=== PATIENT | male | born 1950 | race Caucasian/White ===

== ENCOUNTER → 2017-09-03 | Outpatient (CLI) | payer MEDICARE, OTHER | END | disposition home or self-care (01) | LOC: C.LABPBG 14:30 | PROVIDERS: ATTEND Urology | DX: N40.1 Benign prostatic hyperplasia with lower urinary tract symptoms (principal) ==

== ENCOUNTER → 2017-12-18 | Outpatient (CLI) | payer MEDICARE ==
[2017-12-18 14:53] LABS: ALBUMIN 3.7 gm/dl (3.4-5.0); ALKALINE PHOSPHATASE 59 U/L (45-117); ALT/SGPT 31 U/L (12-78); AST/SGOT 19 U/L (15-37); BLOOD UREA NITROGEN 17 mg/dl (7-18); CARBON DIOXIDE 26 mmol/L (21-32); CREATININE 1.19 mg/dl (0.60-1.40); GLUCOSE 100 mg/dl (70-99); POTASSIUM 4.1 mmol/L (3.5-5.1); SODIUM 140 mmol/L (136-145); TOTAL PROTEIN 7.2 gm/dl (6.4-8.2)
== END | disposition home or self-care (01) ==
LOC: C.LABPBG 10:43
PROVIDERS: ATTEND Family Medicine
DX: N40.1 Benign prostatic hyperplasia with lower urinary tract symptoms (principal); M79.1 Myalgia; R25.2 Cramp and spasm

== ENCOUNTER 2025-05-28 10:43 | Inpatient (IN) ==
--- NOTE | 2025-05-28 11:00 | Emergency Department Note ---
Impression & Plan Acute deep vein thrombosis (DVT), Elevated troponin, LOREN (acute kidney injury), Dyspnea ED Provider Note NAME: HOLLY TYLER AGE: 75 SEX: M : 1950 ARRIVES VIA: Walk-In INFORMANT: Patient, ED PROVIDER(S): Osman Beard MD CHIEF COMPLAINT: Left leg pain MEDICAL DECISION MAKING: Patient presents due to concern primarily for the left calf pain. DVT ultrasound ordered. The patient however has associated shortness of breath although not currently present. Given this dimer chest x-ray EKG and labs also obtained. Patient's blood work shows a normal white count hemoglobin of 13.1 with a normal platelet count. Kidney function with worsening creatinine. Baseline typically 1.1-1.2 but currently 2.18. Patient was ordered 1 L of IV fluids. Initial troponin of 33.6. No priors for comparison. EKG without signs of obvious ischemia. DVT ultrasound concerning for popliteal and tibial DVT. D-dimer is elevated at 22,000. Will defer any CT imaging but will initiate empiric treatment for left lower extremity DVT. Patient was ordered heparin bolus and drip. I did speak with the on-call hospital service Dr. Coyne and the patient was admitted to the medicine service. Critical Care: I have personally spent 36 minutes of critical care time in direct management of this patient. This includes bedside care, interpretation of diagnostic studies, and testing, discussion with consultants, patient, and family members, and other require inpatient management activities. This 36 minutes is in excess of all separately billable procedures. Discussion w/ other healthcare providers: Dr. Coyne inpatient medicine service Prior /Outside records reviewed: I did review part of an operative report from Dr. Eubanks from May 26 which noted the patient was under general anesthesia for shockwave lithotripsy. Differential diagnosis: Reactive airway disease, pneumonia, pneumothorax, COPD, CHF, ACS, pulmonary embolism, musculoskeletal, GERD as well as other pathologies were considered. Diagnostics, as interpreted by me: ECG: Normal sinus rhythm, rate of 72, normal intervals, normal axis no obvious STEMI. Cardiac monitoring: An order was placed for continuous cardiac monitoring. The monitor shows a rate of 75 with sinus rhythm. Patient was placed on pulse oximetry Medical decision rules: None Imaging studies: I informally interpreted the patient's chest x-ray does not show obvious pneumonia with formal report to follow. HPI: Patient presents for left leg pain. The patient reports that this began around midnight. The patient states that he did have some associated shortness of breath may have been a panic but lasted maybe 10 minutes. No cough or fever. Patient denies any chest pains. No falls or trauma. Patient did have a procedure completed with Dr. Eubanks on Thursday. Review of the notes showed patient did undergo lithotripsy and was under general anesthesia. Patient denies any prior history of DVT or PE. Patient denies blood thinner use. PAST MEDICAL HISTORY: See Below PAST SURGICAL HISTORY: See Below SOCIAL HISTORY: See Below HOME MEDICATIONS: See Below ALLERGIES: See Below VITALS: See Below PHYSICAL EXAMINATION: GENERAL: NAD, non-toxic. Wearing glasses and a hat. EYE EXAM: Normal conjunctiva. PERRL, no anisocoria and EOM's grossly intact w/o pain. OROPHARYNX: Moist mucus membranes, grossly normal dentition. NECK: Trachea midline, no stridor. LUNGS: Clear to auscultation. Normal chest wall mechanics. HEART: NSR, no MRG. ABDOMEN: Abdomen soft, non-tender, no masses, no rebound or guarding. BACK: No CVA TTP. SKIN: No rashes and no bruising. UPPER EXTREMITIES: Upper extremities are grossly normal. LOWER EXTREMITIES: No obvious asymmetry, pain to the left posterior calf. No obvious palpable cord. NEURO EXAM: Awake and alert, follows commands, no obvious facial asymmetry, normal speech, moves all 4 extremities. Past Med/Surg History Problem List (Updated 05/28/25 @ 14:27 by Osman Beard MD) Dyspnea (Acute) LOREN (acute kidney injury) (Acute) Elevated troponin (Acute) Acute deep vein thrombosis (DVT) (Acute) Asymptomatic microscopic hematuria (Acute) Back pain (Acute) Diverticulitis (Acute) Chronic constipation Carpal tunnel syndrome of left wrist Colon polyp Lyme disease Panic disorder Anxiety Hemorrhoids Seborrheic keratosis Multiple benign nevi High blood pressure Dermatofibroma Angioma Benign localized prostatic hyperplasia with lower urinary tract symptoms (LUTS) BPH (benign prostatic hyperplasia) Medical History Benign localized prostatic hyperplasia with lower urinary tract symptoms (LUTS) HTN (hypertension) Hx of Lyme disease History of anxiety Chronic constipation Diverticulitis dx 05/15/25, reason for current Flagyl abx; "has had this many times" Hypercholesteremia Kidney stones Surgical History H/O colonoscopy Family History Father Prostate cancer Hypertension Cardiac disorder Mother Cancer Social History Smoking Status: Never smoker Second Hand Exposure: Yes (hx as child); Do You Dip or Chew Tobacco: No; Hx Alcohol Use: Yes Hx Substance Use: No Preferred Language: Belgian Communication Ability: Effective Pharmacy Technologist Required: No Beliefs That Will Affect Care: None marital status: Current Living Situation: Alone current occupational status: retired Feels Safe at Home: Yes Assistive Devices: Denture - Upper and Glasses Allergies Allergies Allergy/AdvReac Type Severity Reaction Status Date / Time lubiprostone [From Amitiza] AdvReac Insomnia Verified 05/26/25 06:25 Home Meds Home Medications Medication Instructions Recorded Confirmed alprazolam 2 mg tablet 1 - 2 mg PO QAM Anxiety 01/14/24 05/28/25 aspirin 81 mg tablet,delayed 0 mg PO QAM 01/14/24 05/28/25 release (Adult Low Dose Aspirin) cholecalciferol (vitamin D3) 10 10 mcg PO QAM 01/14/24 05/28/25 mcg (400 unit) capsule cinnamon bark 500 mg capsule 500 mg PO QAM 01/14/24 05/28/25 (Cinnamon) garlic 500 mg capsule 500 mg PO QAM 01/14/24 05/28/25 lisinopril 10 mg tablet 10 mg PO QAM 01/14/24 05/28/25 omega-3 fatty acids 1,000 mg 1,000 mg PO DAILY 01/14/24 05/28/25 capsule saw palmetto 500 mg capsule 500 mg PO BID 01/14/24 05/28/25 terazosin 5 mg capsule 5 mg PO BID 01/14/24 05/28/25 zinc acetate 50 mg (zinc) capsule 50 mg PO QAM 01/14/24 05/28/25 (Galzin) sennosides 8.6 mg tablet (Senna 8.6 mg PO DAILY 01/22/24 05/28/25 Lax) linaclotide 290 mcg capsule 290 mcg PO QAM 05/10/25 05/28/25 (Linzess) finasteride 5 mg tablet 5 mg PO QAM 05/18/25 05/28/25 tamsulosin 0.4 mg capsule 0.4 mg PO DAILY PRN Kidney Stones 05/28/25 05/28/25 Previous Rx's Medication Instructions Recorded ciprofloxacin HCl 500 mg tablet 500 mg PO Q12H #20 tabs 05/15/25 (Cipro) tramadol 50 mg tablet 50 mg PO Q6H PRN pain #20 tabs 05/26/25 Results & Data (ED) Vital Signs Vital Signs - 24 hr 05/28/25 10:45 05/28/25 13:00 05/28/25 13:09 Temperature 36.7 C Temperature Source Temporal Artery Scan Pulse Rate 99 H 68 82 Respiratory Rate 18 17 Respiratory Effort / Characteristics Non-Labored Spontaneous Respiratory Depth Normal Blood Pressure 133/80 146/88 H Blood Pressure Mean 97 118 Pulse Oximetry 98 96 Oxygen Delivery Method Room Air Sepsis Recent Fever Within 48 Hours No Sepsis New/Unexplained Change in Mental Status No Sepsis Action Taken by Nursing No Action Required 05/28/25 13:16 Temperature Temperature Source Pulse Rate Respiratory Rate Respiratory Effort / Characteristics Respiratory Depth Blood Pressure Blood Pressure Mean Pulse Oximetry 96 Oxygen Delivery Method Room Air Sepsis Recent Fever Within 48 Hours Sepsis New/Unexplained Change in Mental Status Sepsis Action Taken by [facility] Medications Current Medication List: was personally reviewed by me Laboratory Data Attestation: I reviewed the patient's lab results. 05/28/25 11:15 05/28/25 11:15 Lab Results 05/28/25 05/28/25 Range/Units 11:15 13:14 WBC 6.90 (4.8-10.8) K/ul RBC 4.31 L (4.70-6.10) M/uL Hgb 13.1 L (14.0-18.0) g/dl Hct 39.5 L (42.0-52.0) % MCV 91.6 (80.0-100.0) fL MCH 30.4 (25.0-34.0) pg MCHC 33.2 (32.0-36.0) g/dL RDW Std Deviation 42.5 (36.4-46.3) fL RDW Coeff of Vinod 12.8 (11.5-14.5) % Plt Count 221 (130-400) K/uL MPV 9.2 L (9.4-12.4) fL Immature Gran % (Auto) 0.4 % Neut % (Auto) 75.6 % Lymph % (Auto) 14.8 % [place] % (Auto) 8.0 % Eos % (Auto) 0.9 % Baso % (Auto) 0.3 % Neut # (Auto) 5.22 (1.40-6.50) K/uL Lymph # (Auto) 1.02 L (1.20-3.40) K/uL [place] # (Auto) 0.55 (0.11-0.59) K/uL Eos # (Auto) 0.06 (0.00-0.50) K/uL Baso # (Auto) 0.02 (0.00-0.20) K/uL Immature Gran # (Auto) 0.03 (0.01-0.20) K/uL PT 10.7 (9.0-12.0) Seconds INR 1.0 (0.9-1.1) APTT 25 (21-31) Seconds PTT Ratio 0.9 D-Dimer 69915 H* (0-500) ug/L FEU Sodium 141 (136-145) mmol/L Potassium 4.7 (3.5-5.1) mmol/L Chloride 108 H (98-107) mmol/L Carbon Dioxide 23 (21-32) mmol/L Anion Gap 10 (3-11) BUN 22 (6-23) mg/dl Creatinine 2.18 H (0.6-1.4) mg/dl Est Cr Clr Drug Dosing 33.6 ml/min eGFR 30.62 BUN/Creatinine Ratio 10.1 (10-20) Glucose 103 H (70-99(Fasting)) mg/dl Calcium 9.3 (8.6-10.3) mg/dl Total Bilirubin 1.0 (0.2-1.0) mg/dl AST 17 (13-39) U/L ALT 20 (7-52) U/L Alkaline Phosphatase 51 (34-104) U/L Troponin I High Sens 33.6 H 32.6 H (0-20) pg/ml Total Protein 6.9 (6.0-8.3) gm/dl Albumin 3.7 (3.4-5.0) gm/dl Globulin 3.2 (2.5-4.0) gm/dl Albumin/Globulin Ratio 1.2 (0.9-2) Administered Medications Heparin Sodium/Dextrose (Heparin 37615 Unit/500 Ml D5w) 25,000 units in 500 mls @ 30 mls/hr IV .[id number] [facility]; Protocol Stop: 06/27/25 12:29 Last Admin: 05/28/25 12:33 Dose: 1,500 units/hr, 30 mls/hr Documented By: MARÍA Co-signed By: MINDY Discontinued Medications Heparin Sodium (Porcine) (Heparin Sod (Porcine) 1000 Unit/Ml) 1 units IV NOW ONE Stop: 05/28/25 12:29 Last Admin: 05/28/25 12:32 Dose: 7,000 units Documented By: MARÍA Co-signed By: MINDY Heparin Sodium/Dextrose (Heparin Iv Adult Wt-Based Standard W/ Initial Bolus Protocol) 1 each IV NOW STA; Protocol Stop: 05/28/25 12:14 Last Admin: 05/28/25 12:33 Dose: 1 each Documented By: MARÍA Imaging Data Radiologist's Impression: Venous Doppler Study 05/28/25 11:01 LEFT LOWER EXTREMITY VENOUS DOPPLER CLINICAL HISTORY: Left lower extremity pain, recent procedure. COMPARISON STUDY: No previous studies for comparison. TECHNIQUE: Sonography of the deep venous system of the left lower extremity was performed. Compression and augmentation were evaluated. FINDINGS: The left common femoral and superficial femoral veins are patent. There is deep venous thrombus within one of two left popliteal and posterior tibial veins. IMPRESSION: Positive study with deep venous thrombus within left popliteal and posterior tibial veins. ACT 112: Negative or not required by law. Electronically signed by: Jevon Vang M.D. 05/28/2025 12:16 PM Chest X-Ray 05/28/25 11:09 XR chest 1V portable CLINICAL HISTORY: Dyspnea COMPARISON STUDY: Chest radiograph May 17, 2025. FINDINGS: Lung volumes are normal. Lungs are clear. There is no pneumothorax or pleural effusion. Cardiac size is normal. Mediastinal contours are normal. There is no evidence for pulmonary edema. IMPRESSION: No acute cardiopulmonary findings. ACT 112: Negative or not required by law. Electronically signed by: Jevon Vang M.D. 05/28/2025 11:35 AM Discharge Plan Visit Data Chief Complaint: Leg Injury/Pain Stated Complaint: L LEG FEELS HEAVY AND PAINFUL, CONCERN OF CLOT ED Provider: Osman Beard Discharge Problem: Acute deep vein thrombosis (DVT), Elevated troponin, LOREN (acute kidney injury), Dyspnea Patient Disposition: Admitted As Inpatient Condition: Good Prescriptions Prescriptions: No Action charlene palmetto 500 mg capsule 500 mg PO BID Rx Instructions: give with food (meal/snack) cinnamon bark [Cinnamon] 500 mg capsule 500 mg PO QAM aspirin [Adult Low Dose Aspirin] 81 mg tablet,delayed release (DR/EC) 0 mg PO QAM Patient Comments: Currently on hold as of 05/24/25 as pt had surgery on 05/26/25. Told to hold on med until follow-up appointment. 05/28/25 alprazolam 2 mg tablet 1 - 2 mg PO QAM Patient Comments: Originally written for 2mg by mouth daily as needed. Pt states taking 1mg-2mg by mouth once every morning. 05/28/25 omega-3 fatty acids 1,000 mg capsule 1,000 mg PO DAILY garlic 500 mg capsule 500 mg PO QAM cholecalciferol (vitamin D3) 10 mcg (400 unit) capsule 10 mcg PO QAM terazosin 5 mg capsule 5 mg PO BID lisinopril 10 mg tablet 10 mg PO QAM Galzin 50 mg (zinc) capsule 50 mg PO QAM Linzess 290 mcg capsule 290 mcg PO QAM sennosides [Senna Lax] 8.6 mg tablet 8.6 mg PO DAILY ciprofloxacin HCl [Cipro] 500 mg tablet 500 mg PO Q12H Qty: 20 0RF finasteride 5 mg tablet 5 mg PO QAM tramadol 50 mg tablet 50 mg PO Q6H PRN (Reason: pain) Qty: 20 0RF tamsulosin 0.4 mg capsule 0.4 mg PO DAILY PRN (Reason: Kidney Stones) Referrals Referrals: Nayla Dale MD [Primary Care Provider] - Discharge Problem: Acute deep vein thrombosis (DVT) Qualifiers: DVT location: lower extremity Affected thrombotic vein of extremity: popliteal Laterality: left Qualified Code(s): I82.432 - Acute embolism and thrombosis of left popliteal vein Dyspnea Qualifiers: Dyspnea type: unspecified Qualified Code(s): R06.00 - Dyspnea, unspecified
[2025-05-28 11:37] LABS: Hematocrit (blood only) 39.5 % (42.0-52.0); Hemoglobin 13.1 g/dl (14.0-18.0); Immature Granulocytes # (auto) 0.03 K/uL (0.01-0.20); Immature Granulocytes % (auto) 0.4 %; Mean Corpuscular Hemoglobin 30.4 pg (25.0-34.0); Mean Corpuscular Volume 91.6 fL (80.0-100.0); Platelet Count 221 K/uL (130-400); RDW Standard Deviation 42.5 fL (36.4-46.3); Red Blood Count 4.31 M/uL (4.70-6.10); White Blood Count 6.90 K/ul (4.8-10.8)
--- NOTE | 2025-05-28 11:37 | XRay Report ---
XR chest 1V portable CLINICAL HISTORY: Dyspnea COMPARISON STUDY: Chest radiograph May 17, 2025. FINDINGS: Lung volumes are normal. Lungs are clear. There is no pneumothorax or pleural effusion. Car diac size is normal. Mediastinal contours are normal. There is no evidence for pulmonary edema. IMPRESSION: No acute cardiopulmonary findings. ACT 112: Negative or not required by law. Electronically signed by: Jevon Vang M.D. 05/28/2025 11:35 AM
[2025-05-28 11:54] LABS: Alanine Aminotransferase 20.0 U/L (7-52); Albumin Globulin Ratio 1.2 (0.9-2); Alkaline Phosphatase 51.0 U/L (34-104); Anion Gap 10.0 (3-11); Bilirubin,Total 1.0 mg/dl (0.2-1.0); Blood Urea Nitrogen 22.0 mg/dl (6-23); Calcium 9.3 mg/dl (8.6-10.3); Carbon Dioxide 23.0 mmol/L (21-32); Chloride 108.0 mmol/L (98-107); Creatinine Clr Calc Pharmacy 33.6 ml/min; Globulin 3.2 gm/dl (2.5-4.0); Glucose 103.0 mg/dl (70-99(Fasting)); Potassium 4.7 mmol/L (3.5-5.1); Sodium 141.0 mmol/L (136-145); Total Protein 6.9 gm/dl (6.0-8.3)
--- NOTE | 2025-05-28 12:17 | Ultrasound Report ---
LEFT LOWER EXTREMITY VENOUS DOPPLER CLINICAL HISTORY: Left lower extremity pain, recent procedure. COMPARISON STUDY: No previous studies for comparison. TECHNIQUE: Sonography of the deep venous system of the left lower extremity was performed. Compressi on and augmentation were evaluated. FINDINGS: The left common femoral and superficial femoral veins are patent. There is deep venous thr ombus within one of two left popliteal and posterior tibial veins. IMPRESSION: Positive study with deep venous thrombus within left popliteal and posterior tibial veins . ACT 112: Negative or not required by law. Electronically signed by: Jevon Vang M.D. 05/28/2025 12:16 PM
[2025-05-28 12:32] LABS: INR 1.0 (0.9-1.1); Partial Thromboplastin Time 25 Seconds (21-31); Prothrombin Time 10.7 Seconds (9.0-12.0)
[2025-05-28] MEDS: HEPARIN SOD (PORCINE) 1000 UNIT/ML IV ONE (12:32)
[2025-05-28] MEDS: Heparin IV Adult Wt-Based Standard w/ INITIAL Bolus Protocol IV STA (12:33)
[2025-05-28] MEDS: HEPARIN 25000 UNIT/500 ML D5W 25,000 UNITS/500 ML BAG IV SCH (12:33)
--- NOTE | 2025-05-28 12:59 | History & Physical Report ---
Date of Service May 28, 2025 Assessment & Plan (1) LOREN (acute kidney injury): (2) Acute deep vein thrombosis (DVT): (3) Elevated troponin: (4) Panic disorder: (5) High blood pressure: (6) Benign localized prostatic hyperplasia with lower urinary tract symptoms (LUTS): Plan 75 y/o with BPH and nephrolithiasis who underwent recent urologic procedure with anesthesia (ESWL 05/[address] Eubanks) who is admitted with left calf DVT, LOREN # LOREN - denies NSAIDS and PVR only 120-160 in ED. No obvious dehydration but has had few weeks malaise from diverticulitis, nephrolithiasis. Potentially related to obstruction / stone passage or prerenal injury. -1L NS given in ED. -hydrate with IV LR -if not promptly resolving will ultrasound kidneys, bladder to r/o obstructive process since he just had urologic procedure. -monitor PVR and UOP -continue finasteride terazosin and tamsulosin for BPH. chronically not on tamsulosin - thats for the recent stone pain. -hold MARGARITA -AM BMP # L calf DVT - provoked by recent immobility related to diverticulitis/nephrolithiasis and or urological procedure with general anesthesia a few days ago. No personal Hx VTE but daughter had a DVT. -stop heparin drip and change to apixaban 10 mg bid at 7pm -discussed risks:benefits of anticoagulation # Slight elevation of HS-trop with flat trend -unable to determine whether simply poor renal clearance or mild demand ischemia related to recent anesthesia or minor PE since he did have some dyspnea at night. No hypoxia or chest pain at this time. 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 No hx CAD or CVD/stroke so presume this is for primary prevention # Generalized anxiety and panic disorder -continue alprazolam as needed, seems to take most mornings History of Present Illness Chief Complaint: left calf pain Primary Care Provider: Nayla Dale MD 75 y/o with BPH and nephrolithiasis who underwent recent urologic procedure with anesthesia (ESWL 05/[address] Eubanks) who came to ED with L calf pain that started around midnight. He woke up with it. Zam[place] like a bad [place] Horse but persisted and didn't get better. No edema/swelling warmth or redness. He had a little shortness of breath around that time without chest pain, felt a bit like a panic attack. He never gets panic attacks at night however. This dyspnea lasted maybe 10 minutes and resolved. No dyspnea now and no chest pain. He has BPH and has had a few episodes of urinary retention requiring thorne or straight cath but not recently. He has slow stream and incomplete voiding. He had been having R back/flank pain that has improved/resolved following the ESWL. No hematuria or inability to void, no dysuria. Has been having poor appetite but drinking fluids well. No N/V/D. Has had a recent episode of diverticulitis - took 9 days of cipro through last week and had to stop early because of tendon pain. He says the diverticulitis sx have resolved. No fevers/chills. Not on antibiotics right now. In ED found to have elevated Ddimer and duplex showed L calf DVT Tn minimally elevated at 33, EKG reassuring He was also found to have LOREN Allergies Allergy/AdvReac Type Severity Reaction Status Date / Time lubiprostone [From Amitiza] AdvReac Insomnia Verified 05/26/25 06:25 Home Medications Medication Instructions Recorded Confirmed Type alprazolam 2 mg tablet 1 - 2 mg PO QAM Anxiety 01/14/24 05/28/25 History aspirin 81 mg tablet,delayed 0 mg PO QAM 01/14/24 05/28/25 History release (Adult Low Dose Aspirin) cholecalciferol (vitamin D3) 10 10 mcg PO QAM 01/14/24 05/28/25 History mcg (400 unit) capsule cinnamon bark 500 mg capsule 500 mg PO QAM 01/14/24 05/28/25 History (Cinnamon) garlic 500 mg capsule 500 mg PO QAM 01/14/24 05/28/25 History lisinopril 10 mg tablet 10 mg PO QAM 01/14/24 05/28/25 History omega-3 fatty acids 1,000 mg 1,000 mg PO DAILY 01/14/24 05/28/25 History capsule saw palmetto 500 mg capsule 500 mg PO BID 01/14/24 05/28/25 History terazosin 5 mg capsule 5 mg PO BID 01/14/24 05/28/25 History zinc acetate 50 mg (zinc) capsule 50 mg PO QAM 01/14/24 05/28/25 History (Galzin) sennosides 8.6 mg tablet (Senna 8.6 mg PO DAILY 01/22/24 05/28/25 History Lax) linaclotide 290 mcg capsule 290 mcg PO QAM 05/10/25 05/28/25 History (Linzess) ciprofloxacin HCl 500 mg tablet 500 mg PO Q12H #20 tabs 05/15/25 05/26/25 Rx (Cipro) finasteride 5 mg tablet 5 mg PO QAM 05/18/25 05/28/25 History tramadol 50 mg tablet 50 mg PO Q6H PRN pain #20 tabs 05/26/25 05/28/25 Rx tamsulosin 0.4 mg capsule 0.4 mg PO DAILY PRN Kidney Stones 05/28/25 05/28/25 History Past Med/Surg History Problem List (Updated 05/28/25 @ 14:27 by Osman Beard MD) Dyspnea (Acute) LOREN (acute kidney injury) (Acute) Elevated troponin (Acute) Acute deep vein thrombosis (DVT) (Acute) Asymptomatic microscopic hematuria (Acute) Back pain (Acute) Diverticulitis (Acute) Chronic constipation Carpal tunnel syndrome of left wrist Colon polyp Lyme disease Panic disorder Anxiety Hemorrhoids Seborrheic keratosis Multiple benign nevi High blood pressure Dermatofibroma Angioma Benign localized prostatic hyperplasia with lower urinary tract symptoms (LUTS) BPH (benign prostatic hyperplasia) Medical History Benign localized prostatic hyperplasia with lower urinary tract symptoms (LUTS) HTN (hypertension) Hx of Lyme disease History of anxiety Chronic constipation Diverticulitis dx 05/15/25, reason for current Flagyl abx; "has had this many times" Hypercholesteremia Kidney stones Surgical History H/O colonoscopy Family History Father Prostate cancer Hypertension Cardiac disorder Mother Cancer Social History Smoking Status: Never smoker Second Hand Exposure: Yes (hx as child); Do You Dip or Chew Tobacco: No; Hx Alcohol Use: Yes Hx Substance Use: No Preferred Language: Syriac Communication Ability: Effective Funeral Home Assistant Required: No Beliefs That Will Affect Care: None marital status: Current Living Situation: Alone current occupational status: retired Feels Safe at Home: Yes Assistive Devices: Denture - Upper and Glasses Review of Systems 2 Review of Systems: All systems reviewed & are unremarkable except as noted in HPI & below Physical Exam 2 Physical Exam: Last 24h vitals reviewed GEN: no acute distress, sitting on gurney in ED HEENT: pupils equal, sclerae anicteric, moist MM RESP: normal WOB, CTAB CV: reg no mrg ABD: soft/nt/nd +BT : no thorne SKIN: warm and dry, no generalized rashes EXT: some L calf tenderness but no palpable cord, no erythema or edema, appears equal size to R NEURO: AOx person, place, and situation. Face symmetric, speech normal, moves 4 ext spontaneously and equally Results & Data Results & Data Vital Signs (Past 12 Hours) Vital Signs Temp Pulse Resp BP Pulse Ox O2 Del Method 05/28/25 10:45 36.7 C 99 H 18 133/80 98 Room Air Laboratory Results 05/28/25 11:15 05/28/25 11:15 Ddimer elevated Tn 33 Diagnostic Findings Personally reviewed EKG tracing and it is normal LE duplex - DVT left popliteal veins and posterior tibial vein Code Status & VTE Plan VTE Prophylaxis Plan VTE Prophylaxis will be ordered: No Reason for no VTE drug order: Treatment not indicated PG Care Time/CCT Total # of Minutes Spent Total Time Spent with Patient: Total time spent is greater than 50% in coordination of care (as documented) at patient's floor/unit and/or counseling patient: Coding Level of Care Code 25386 INT INP/OBS CARE 3/75MIN Diagnoses LOREN (acute kidney injury) N17.9 Acute deep vein thrombosis (DVT) I82.432 Affected thrombotic vein of extremity: popliteal DVT location: lower extremity Laterality: left Elevated troponin R79.89 Panic disorder F41.0 High blood pressure I10 Benign localized prostatic hyperplasia with lower urinary tract symptoms (LUTS) N40.1 (2) Acute deep vein thrombosis (DVT) Affected thrombotic vein of extremity: popliteal DVT location: lower extremity Laterality: left Qualified Code(s): I82.432 - Acute embolism and thrombosis of left popliteal vein
[2025-05-28 13:16] VITALS: O2SAT 96
[2025-05-28] MEDS: SODIUM CHLORIDE 0.9% 500 ML IV ONE (14:59)
[2025-05-28] MEDS ORDERED: POLYETHYLENE (MIRALAX) 17 GM PACK PO PRN (16:32)
[2025-05-28] MEDS ORDERED: ONDANSETRON INJ 2 MG/ML 2 ML VIAL IV PRN (16:32)
[2025-05-28] MEDS ORDERED: MAGNESIUM HYDROXIDE SUSP 30 ML UDC PO PRN (16:32)
[2025-05-28] MEDS ORDERED: ALUMINUM/MAGNESIUM SUSP 30 ML UDC PO PRN (16:32)
[2025-05-28] MEDS ORDERED: MELATONIN 3 MG TAB PO PRN (16:32)
[2025-05-28] MEDS: APIXABAN 5 MG TABLET PO SCH (19:15)
[2025-05-29] MEDS: ACETAMINOPHEN 325 MG TAB PO PRN (06:29)
[2025-05-29 07:21] VITALS: RESP 18; TEMP 98.4
[2025-05-29 08:19] LABS: Anion Gap 10.0 (3-11); Blood Urea Nitrogen 21.0 mg/dl (6-23); Calcium 9.0 mg/dl (8.6-10.3); Carbon Dioxide 22.0 mmol/L (21-32); Chloride 108.0 mmol/L (98-107); Creatinine Clr Calc Pharmacy 39.0 ml/min; Glucose 101.0 mg/dl (70-99(Fasting)); Potassium 4.3 mmol/L (3.5-5.1); Sodium 140.0 mmol/L (136-145)
--- NOTE | 2025-05-29 09:24 | Ultrasound Report ---
RENAL ULTRASOUND CLINICAL HISTORY: LOREN, recent nephrolithiasis and ESWL COMPARISON STUDY: CT of the abdomen and pelvis May 15, 2025. TECHNIQUE: Sonography of the kidneys and the urinary bladder was performed. FINDINGS: The right kidney measures 12.2 cm in maximal dimension and the left measures 11.9 cm. No re nal calculi are identified by sonography. There is mild left hydronephrosis and mild dilatation of th e proximal right ureter. There is no left hydronephrosis. The prostate is enlarged. Ureteral jets wer e not visualized. IMPRESSION: 1. Mild right hydronephrosis. 2. No left hydronephrosis. 3. No renal calculi identified by sonography. ACT 112: Negative or not required by law. Electronically signed by: Jevon Vang M.D. 05/29/2025 9:22 AM
[2025-05-29 09:27] VITALS: BP 125/73; PULSE 80
[2025-05-29] MEDS: TERAZOSIN HCL 5 MG CAP PO SCH (09:28)
[2025-05-29] MEDS: LINACLOTIDE 145 MCG CAPSULE PO SCH (09:30)
[2025-05-29] MEDS: FINASTERIDE 5 MG TAB PO SCH (09:30)
[2025-05-29] MEDS: SENNA 8.6 MG TAB PO SCH (09:31)
--- NOTE | 2025-05-29 09:50 | Electrocardiogram Report ---
Test Reason : Blood Pressure : */* mmHG Vent. Rate : 72 BPM Atrial Rate : 72 BPM P-R Int : 174 ms QRS Dur : 86 ms QT Int : 360 ms P-R-T Axes : 52 14 41 degrees QTcB Int : 394 ms Normal sinus rhythm Normal ECG When compared with ECG of 17-May-2025 11:39, T wave inversion no longer evident in Inferior leads Confirmed by Wilton Abraham ([id number]) on 05/29/2025 9:49:35 AM Referred By: REFERRED SELF Confirmed By: Wilton Abraham
--- NOTE | 2025-05-29 17:53 | Discharge Summary ---
Discharge Summary Date of Service May 29, 2025 Principal Dx & Hospital Course #1 = Principal Diagnosis (1) LOREN (acute kidney injury): (2) Acute deep vein thrombosis (DVT): (3) Elevated troponin: (4) Panic disorder: (5) High blood pressure: (6) Benign localized prostatic hyperplasia with lower urinary tract symptoms (LUTS): Plan 75 y/o with BPH and nephrolithiasis who underwent recent urologic procedure with anesthesia ([facility] 05/[address] 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 No obvious dehydration but has had few weeks malaise from diverticulitis, nephrolithiasis. Potentially related to obstruction / stone passage or prerenal injury. -given IV fluids -Cr improved from 2-->1.88, maintaining normal UOP -ultrasound kidneys, bladder obtained - reassuring with only mild R hydro which is related to recent urologic procedure and ongoing passage of small stone fragments. No stones visualized. -continue finasteride terazosin and tamsulosin for BPH. chronically not on tamsulosin - thats for the recent stone pain. -hold lisinopril until primary care follow up - can be resumed if BMP normalizing to his baseline -counseled no NSAIDS because of anticoagulation, LOREN # L calf DVT - provoked by recent immobility related to diverticulitis/nephrolithiasis and or urological procedure with general anesthesia a few days ago. No personal Hx VTE but daughter had a DVT. -prescribed apixaban -discussed risks:benefits of anticoagulation # Slight elevation of HS-trop with flat trend # Possible PE related to LLE DVT, however, if present it is very minor -unable to determine whether simply poor renal clearance or mild demand ischemia related to recent anesthesia or minor PE since he did have some dyspnea at night. No hypoxia or chest pain at this time. EKG normal and no chest pain, no evidence of ACS -will not pursue CTA chest at this time since will not change management expert # HTN - hold lisinopril as above Stop aspirin while on eliquis. No hx CAD or CVD/stroke so presume this is for primary prevention # Generalized anxiety and panic disorder -continue alprazolam as needed, seems to take most mornings Notes For Next Care Provider L calf DVT, LOREN Please check BMP on follow up and resume lisinopril if indicated Medication Changes From Visit Started apixaban Stopped ASA Held lisinopril Admission HPI Per Admitting Provider 75 y/o with BPH and nephrolithiasis who underwent recent urologic procedure with anesthesia ([facility] 05/[address] Eubanks) who came to ED with L calf pain that started around midnight. He woke up with it. [place] like a bad [place] but persisted and didn't get better. No edema/swelling warmth or redness. He had a little shortness of breath around that time without chest pain, felt a bit like a panic attack. He never gets panic attacks at night however. This dyspnea lasted maybe 10 minutes and resolved. No dyspnea now and no chest pain. He has BPH and has had a few episodes of urinary retention requiring thorne or straight cath but not recently. He has slow stream and incomplete voiding. He had been having R back/flank pain that has improved/resolved following the ESWL. No hematuria or inability to void, no dysuria. Has been having poor appetite but drinking fluids well. No N/V/D. Has had a recent episode of diverticulitis - took 9 days of cipro through last week and had to stop early because of tendon pain. He says the diverticulitis sx have resolved. No fevers/chills. Not on antibiotics right now. In ED found to have elevated Ddimer and duplex showed L calf DVT Tn minimally elevated at 33, EKG reassuring He was also found to have LOREN Discharge Exam Last 24h vitals reviewed GEN: no acute distress, sitting up in chair HEENT: pupils equal, sclerae anicteric, moist MM RESP: normal WOB CV: ABD: ND : no thorne SKIN: warm and dry, no generalized rashes EXT: no further L calf tenderness no palpable cord, no erythema or edema, appears equal size to R NEURO: AOx person, place, and situation. Face symmetric, speech normal, moves 4 ext spontaneously and equally Discharge Plan Discharge Items Patient Disposition: Home - Self-Care Reason For Visit: DVT, LOREN Discharge Diagnosis: L calf DVT, LOREN Condition on Discharge: Good Activity: Resume your previous activity Non-emergency contact: Primary Care Provider and Urologist Call non-emergency contact if: you have any medication questions and your symptoms worsen Follow-up/Referrals: Puma Eubanks MD [Physician] - Nayla Dale MD [Primary Care Provider] - (PLEASE CALL YOUR PCP AND MAKE A HOSPITAL FOLLOW UP VISIT IN 7-10 DAYS. YOUR OFFICE WAS CLOSED TODAY.) Diet: Regular Addtl Attending Provider Instructions: You were treated for left calf DVT (blood clot in calf veins) and mild acute kidney injury Its possible you had a small PE (part of blood clot went to lung), however, treatment is the same so we did not explicitly test for PE The DVT seems to have been provoked by your recent illnesses and surgical procedure Typically these are treated with three months of blood thinner We recommend Eliquis (apixaban). We discussed the risks and benefits of anticoagulation, including the risks of gastrointestinal bleeding - seek medical attention if you have black/tarry or bloody stool There is also a very small but real risk of intracranial hemorrhage - related to head trauma or bleeding-type stroke, that can be life threatening. Call 911 if you have altered mental status or symptoms of stroke (weakness or numbness of f alejandra/arm/leg, trouble speaking or understanding, trouble with walking/balance We recommend blood thinner in your case because the risk of worsening DVT or PE is much higher than the risk of severe bleeding STOP taking baby aspirin while you are on the Eliquis. Do not take NSAID medications (motrin/advil/ibuprofen, aleve/naproxen) while taking blood thinner because they increase the risk of gastrointestinal bleeding. Acetaminophen is safe to take as directed and will not bother your stomach or kidneys. Your kidney injury improved. Kidney ultrasound was reassuring. HOLD lisinopril until you follow up in primary care - she can check your labs and tell you when to restart it. Follow up with primary care for the DVT and with Dr. Eubanks as planned It was a pleasure taking care of you in the hospital, Nelida Diggs MD Pending Studies at Discharge: No Stand-Alone Forms: My [facility] Edgar, Smoking Cessation Medications and DC Order Prescriptions: New Eliquis 5 mg Tablet See Rx Instructions .ROUTE .COMPLEX Qty: 68 0RF Rx Instructions: 2 tabs twice a day for six days (12 more doses), then continue 1 tab twice a day Continued saw palmetto 500 mg capsule 500 mg PO BID Rx Instructions: give with food (meal/snack) cinnamon bark [Cinnamon] 500 mg capsule 500 mg PO JULIETA villavicenciozolam 2 mg tablet 1 - 2 mg PO QAM Patient Comments: Originally written for 2mg by mouth daily as needed. Pt states taking 1mg-2mg by mouth once every morning. 05/28/25 omega-3 fatty acids 1,000 mg capsule 1,000 mg PO DAILY garlic 500 mg capsule 500 mg PO QAM cholecalciferol (vitamin D3) 10 mcg (400 unit) capsule 10 mcg PO QAM terazosin 5 mg capsule 5 mg PO BID Galzin 50 mg (zinc) capsule 50 mg PO QAM Linzess 290 mcg capsule 290 mcg PO QAM sennosides [Senna Lax] 8.6 mg tablet 8.6 mg PO DAILY finasteride 5 mg tablet 5 mg PO QAM tramadol 50 mg tablet 50 mg PO Q6H PRN (Reason: pain) Qty: 20 0RF tamsulosin 0.4 mg capsule 0.4 mg PO DAILY PRN (Reason: Kidney Stones) Held lisinopril 10 mg tablet 10 mg PO QAM Hold Instructions: hold until restarted by primary care Discontinued aspirin [Adult Low Dose Aspirin] 81 mg tablet,delayed release (DR/EC) 0 mg PO QAM Patient Comments: Currently on hold as of 05/24/25 as pt had surgery on 05/26/25. Told to hold on med until follow-up appointment. 05/28/25 ciprofloxacin HCl [Cipro] 500 mg tablet 500 mg PO Q12H Qty: 20 0RF Discharge Orders: Discharge Order (Routine); Ordered 05/29/25 Ordered By: Nelida Nascimento/Other Patient Handouts: Apixaban Oral Tablet Admission Data Admit Date/Time: 05/28/25 13:08 Attending Provider: Nelida Diggs Admit Provider: Nelida Diggs Primary Care Provider: Nayla Dale Other Providers: Nelida Diggs Other Interventions: Discharge Summary Assessment (RN) Last Done: 05/29/25 12:58 Hospital Stay Data Consultations 05/28/25 12:15 ED Decision to Admit Stat Diagnostic Imagining Performed 05/28/25 11:01 US venous doppler LE LT Stat 05/29/25 08:26 US renal/blad retro comp Urgent Pending Results Patient Have Any Pending Studies at Discharge: No Discharge Instructions Given to Patient (Per Discharging Provider) You were treated for left calf DVT (blood clot in calf veins) and mild acute kidney injury Its possible you had a small PE (part of blood clot went to lung), however, treatment is the same so we did not explicitly test for PE The DVT seems to have been provoked by your recent illnesses and surgical procedure Typically these are treated with three months of blood thinner We recommend Eliquis (apixaban). We discussed the risks and benefits of anticoagulation, including the risks of gastrointestinal bleeding - seek medical attention if you have black/tarry or bloody stool There is also a very small but real risk of intracranial hemorrhage - related to head trauma or bleeding-type stroke, that can be life threatening. Call 911 if you have altered mental status or symptoms of stroke (weakness or numbness of face/arm/leg, trouble speaking or understanding, trouble with walking/balance We recommend blood thinner in your case because the risk of worsening DVT or PE is much higher than the risk of severe bleeding STOP taking baby aspirin while you are on the Eliquis. Do not take NSAID medications (motrin/advil/ibuprofen, aleve/naproxen) while taking blood thinner because they increase the risk of gastrointestinal bleeding. Acetaminophen is safe to take as directed and will not bother your stomach or kidneys. Your kidney injury improved. Kidney ultrasound was reassuring. HOLD lisinopril until you follow up in primary care - she can check your labs and tell you when to restart it. Follow up with primary care for the DVT and with Dr. Eubanks as planned It was a pleasure taking care of you in the hospital, Nelida Diggs MD Total Time Total Time Spent Total Time Spent (In Minutes): I personally spent: 35 minutes today on clinical care activities including: reviewing chart notes and vital signs reviewing labs reviewing studies discussion with patient care secretary - confirmed apixaban cost and Rx examining and counseling the patient writing orders writing prescriptions, discharge instructions documentation Coding Level of Care Code 50639 INP/OBS DISCH >30 MIN Diagnoses LOREN (acute kidney injury) N17.9 Acute deep vein thrombosis (DVT) I82.432 Affected thrombotic vein of extremity: popliteal DVT location: lower extremity Laterality: left Elevated troponin R79.89 Panic disorder F41.0 High blood pressure I10 Benign localized prostatic hyperplasia with lower urinary tract symptoms (LUTS) N40.1
== END 2025-05-29 15:17 | disposition home or self-care (01) | DRG 300 ==
LOC: SUATTDRO → ED 10:43 → EDINP 13:08 → 3N 16:10